=== PATIENT | male | born 1950 | race Two or more races ===

== ENCOUNTER → 2017-04-27 | Day surgery (SDC) | payer MEDICAID ==
[~2017-04-27] VITALS: Ht 170.2 cm; Wt 88.0 kg
[~2017-04-27] MED LIST: ACETAMINOPHEN 1000 MG/100 ML VIAL IV ONE; ATOR40TA16 PO; BUPIVACAINE HCL PF 0.5% 30 ML VIAL ONE; CEPH-460 PO; CHLORHEXIDINE GLUCONATE 2 % 1 PACK (2 CLOTHS) TOPICAL PRN; GABA400C5 PO; INSULIN HUMAN REGULAR 1,000 UNITS/10 ML VIAL SQ PRN; LACTATED RINGER'S 1000 ML IV PRN; LIDOCAINE HCL 2% 50 ML VIAL ONE; LISI20TA PO; METF500T4 PO; METOPROLOL TARTRATE 25 MG TAB PO PRN; NEOMYCIN/POLYMYXIN 1 ML G.U. IRRIGANT ONE; NORC5TAB PO; POVIDONE IODINE 5% (ANTISEPSIS KIT) 4 APPLICATIONS EACH NARE PRN; PROPOFOL 200 MG/20 ML AMP IV ONE; SODIUM CHLORID 0.9% 500 ML IV PRN; VESI10TA PO; ceFAZolin 1,000 MG/NS 100 ML IV SCH; fentaNYL CITRATE 250 MCG/5 ML AMP ONE
[2017-04-27 06:44] LABS: HEMATOCRIT 47.4 % (39.0-51.0); MEAN CELL VOLUME 86.3 FL (80.0-100.0); MEAN CORPUSCULAR HGB CONC 32.5 % (32.0-36.0); PLATELET COUNT 178 TH/MM3 (150-450); RED BLOOD COUNT 5.49 MIL/MM3 (4.50-5.90); RED CELL DISTRIBUTION WIDTH 13.1 % (11.6-17.2); REVIEW FLAG FINAL
[2017-04-27 06:45] VITALS: BP 141/86; PULSE 71; RESP 18; TEMP 97.7; O2SAT 98
[2017-04-27 09:15] VITALS: BP 117/62; PULSE 67; RESP 16; TEMP 97.9; O2SAT 97
--- NOTE | 2017-04-27 19:06 | EKG ---
Date Performed: 04/27/2017 Time Performed: 07:03:40 PTAGE: 66 years EKG: Sinus rhythm NORMAL ECG NO PREVIOUS TRACING DOCTOR: Becca Holt Interpretating Date/Time 04/27/2017 19:04:33
--- NOTE | 2017-04-28 11:08 | MP ---
cc: ROBBY SIU III, M.D. DATE OF SURGERY 04/27/2017 PREOPERATIVE DIAGNOSIS Right carpal tunnel syndrome PROCEDURE Right open carpal tunnel release POSTOPERATIVE DIAGNOSIS Right carpal tunnel syndrome, severe PROCEDURE NOTE The patient was brought to the operating room, placed supine on the operating table after the correct site and side of surgery were verified by members of each team in the room multiple times including the patient and myself and after adequate preoperative markings and preoperative written consent were verified by everyone and after an adequate preoperative time-out was performed to everyone's satisfaction and after adequate IV sedation had been achieved, the right upper extremity was prepped and draped in the traditional sterile surgical fashion. A 50/50 mixture of 2% plain lidocaine, 0.5% plain Marcaine was infiltrated in the skin and subcutaneous tissue and into the carpal tunnel. The limb was exsanguinated with an Noe wrap and a highly placed well-padded axillary tourniquet was inflated to 200 mmHg for a total of 10 minutes. A longitudinally oriented incision within the skin crease was made and carried down through skin and subcutaneous tissue. The palmar fascia was divided and retracted in opposite directions. The transverse carpal ligament was identified and divided in its midline from its proximal most to its distal-most extent completely freeing the carpal tunnel contents. The carpal tunnel contents were examined found to be in continuity with a moderately hypertrophic tenosynovium. There was a noticeable rebound once the transverse carpal ligament was divided. There was no other evidence of any mass effect or any anatomic abnormalities. Thorough irrigation with saline was performed. The skin edges were reapproximated using interrupted 4-0 nylon sutures. The hand and arm were thoroughly cleansed dried. Betadine and Adaptic were applied on top of the wounds followed by a bulky soft dressing and the tourniquet was released and the hand and all the fingers on right became immediately soft, pink, warm and had brisk capillary refill of less than two seconds. The patient was awakened from anesthesia and transported to the Post Anesthesia Care Unit awake and in stable condition at the [facility]. MD JIM De Leon III/MARCIAL /8:44 AM /11:04 AM
== END | disposition home or self-care (01) ==
LOC: PHSDC 06:08
PROVIDERS: ATTEND Orthopaedic Surgery Hand Surgery
DX: G56.01 Carpal tunnel syndrome, right upper limb (principal); I10 Essential (primary) hypertension; E78.5 Hyperlipidemia, unspecified; E11.9 Type 2 diabetes mellitus without complications; Z79.899 Other long term (current) drug therapy; Z85.828 Personal history of other malignant neoplasm of skin
CPT/HCPCS: 01810; 36415; 64721; 85027; 93005; J0131; J0690; J3010; J7120